=== PATIENT | male | born 1940 | race Two or more races ===

== ENCOUNTER 2017-01-22 00:01 | Emergency (ER) | payer MEDICARE, OTHER ==
[~2017-01-22] VITALS: Ht 170.2 cm; Wt 77.1 kg
[2017-01-22] MEDS ORDERED: AMLO5TAB2 PO (00:20)
[2017-01-22] MEDS ORDERED: METO-306 PO (00:20)
--- NOTE | 2017-01-22 00:33 | NUR ---
Pt c/o dizziness, primarily when changing positions. Pt denies CP, SOB, n/v, no other complaints, no distress noted.
[2017-01-22] MEDS ORDERED: MECLIZINE HCL 25 MG TABLET PO ONE (00:45)
[2017-01-22] MEDS ORDERED: MECLIZINE HCL 25 MG TABLET ONE (01:02)
[2017-01-22 01:04] LABS: BASOPHILS % (AUTO) 0.6 % (0.0-2.0); EOSINOPHILS # (AUTO) 0.2 K/uL (0.0-0.7); EOSINOPHILS % (AUTO) 2.7 % (0.0-7.0); HEMATOCRIT 38.7 % (36.7-47.1); HEMOGLOBIN 13.2 g/dL (12.5-16.3); LYMPHOCYTES # (AUTO) 2.2 K/uL (20.0-40.0); LYMPHOCYTES % (AUTO) 32.2 % (20.5-51.5); MEAN CORPUSCULAR HEMOGLOBIN 29.8 uug (23.8-33.4); MEAN CORPUSCULAR HGB CONC 34 g/dL (32.5-36.3); MEAN CORPUSCULAR VOLUME 87.3 fL (73.0-96.2); MONOCYTES # (AUTO) 0.6 K/uL (2.0-10.0); MONOCYTES % (AUTO) 9.4 % (0.0-11.0); NEUTROPHILS # (AUTO) 3.7 K/uL (1.8-8.9); NEUTROPHILS % (AUTO) 55.1 % (38.5-71.5); PLATELET COUNT (AUTO) 219 K/uL (152-348); RED BLOOD CELL COUNT(AUTO) 4.44 MIL/uL (4.06-5.63); WHITE BLOOD COUNT (AUTO) 6.7 K/uL (3.6-10.2)
[2017-01-22 01:14] LABS: CARBON DIOXIDE 29 mmol/L (21-32); CHLORIDE 105 mmol/L (98-107); GLUCOSE 132 mg/dL (74-106); POTASSIUM 3.4 mmol/L (3.5-5.1); UREA NITROGEN, BLOOD 13 mg/dL (7-18)
[2017-01-22] MEDS ORDERED: POTASSIUM CHLORIDE 20 MEQ TAB.PRT.SR PO ONE (01:45)
[2017-01-22] MEDS ORDERED: POTASSIUM CHLORIDE 20 MEQ TAB.PRT.SR ONE (02:15)
--- NOTE | 2017-01-22 02:40 | NUR ---
IV removed intact, site okay, bandaged. Gave pt RX and d/c instructions, verbalized understanding. Daughter bedside.
== END 2017-01-22 02:45 | disposition home or self-care (01) ==
LOC: ER 00:08
DX: R42 Dizziness and giddiness (principal); E87.6 Hypokalemia; I10 Essential (primary) hypertension
CPT/HCPCS: 36415; 70450; 80048; 85025; 85730; 93005; 99285; A4663; J8597

== ENCOUNTER 2023-05-17 09:37 | Emergency (ER) | payer MEDICARE, OTHER ==
[~2023-05-17] VITALS: Ht 170.2 cm; Wt 78.9 kg
[~2023-05-17 09:37] MED LIST: AMLO-212 PO; METO-358 PO
[2023-05-17] MEDS ORDERED: SWABABLE VALVE TRANSFER SET EA MC ONE (10:05)
[2023-05-17] MEDS ORDERED: IOHEXOL 350 100 ML INFUS..BTL ONE (10:05)
[2023-05-17] MEDS ORDERED: IV NORMAL SALINE 250 ML IV ONE (10:06)
[2023-05-17] MEDS ORDERED: METO100T7 PO (10:16)
[2023-05-17] MEDS ORDERED: TAMS-3 PO (10:16)
[2023-05-17] MEDS ORDERED: AMLO5TAB4 PO (10:16)
[2023-05-17 10:23] LABS: BASOPHILS % (AUTO) 0.4 % (0.0-2.0); EOSINOPHILS # (AUTO) 0.1 K/uL (0.0-0.7); EOSINOPHILS % (AUTO) 1.1 % (0.0-7.0); HEMATOCRIT 38.9 % (36.7-47.1); HEMOGLOBIN 13.7 g/dL (12.5-16.3); LYMPHOCYTES # (AUTO) 2.1 K/uL (0.8-4.8); LYMPHOCYTES % (AUTO) 34.1 % (20.5-51.5); MEAN CORPUSCULAR HEMOGLOBIN 30.8 uug (23.8-33.4); MEAN CORPUSCULAR HGB CONC 35 g/dL (32.5-36.3); MEAN CORPUSCULAR VOLUME 87.3 fL (73.0-96.2); MONOCYTES # (AUTO) 0.5 K/uL (0.1-1.30); MONOCYTES % (AUTO) 9.1 % (0.0-11.0); NEUTROPHILS # (AUTO) 3.3 K/uL (1.8-8.9); NEUTROPHILS % (AUTO) 55.3 % (38.5-71.5); PLATELET COUNT (AUTO) 185 K/uL (152-348); RED BLOOD CELL COUNT(AUTO) 4.45 MIL/uL (4.06-5.63); RED CELL DISTRIBUTION WIDTH 14.2 % (12.1-16.2)
[2023-05-17 10:28] LABS: DIFFERENTIAL COMMENT 1
[2023-05-17 10:42] LABS: CALCIUM 8.7 mg/dL (8.5-10.1); CARBON DIOXIDE 27 mmol/L (21-32); CHLORIDE 104 mmol/L (98-107); CREATININE 0.9 mg/dL (0.6-1.3); GLUCOSE 113 mg/dL (74-106); POTASSIUM 3.9 mmol/L (3.5-5.1); SODIUM SERUM 140 mmol/L (136-145); UREA NITROGEN, BLOOD 17 mg/dL (7-18)
[2023-05-17 10:48] LABS: ALANINE AMINOTRANSFERASE 19 U/L (16-63); ALBUMIN 3.8 g/dL (3.4-5.0); ALKALINE PHOSPHATASE 79 U/L (50-136); ASPARTATE AMINOTRANSFERASE 13 U/L (15-37); BILIRUBIN,DIRECT 0.1 mg/dL (0.0-0.2); BILIRUBIN,TOTAL 0.8 mg/dL (0.2-1.0); TOTAL PROTEIN, SERUM 7.6 g/dL (6.4-8.2)
[2023-05-17 11:01] LABS: HDL CHOLESTEROL 51 mg/dL (40-60); TRIGLYCERIDES 91 MG/DL (30-150)
[2023-05-17 11:02] LABS: CHOLESTEROL 200 mg/dL (<200)
[2023-05-17] MEDS ORDERED: ASPIRIN 325 MG TABLET ONE (11:35)
[2023-05-17] MEDS: ASPIRIN 325 MG TABLET PO ONE (11:40)
[2023-05-17 11:59] VITALS: BP 141/55; TEMP 97.8; O2SAT 99
[2023-05-17 12:28] LABS: *BILIRUBIN,URIN NEGATIVE (NEGATIVE); *BLOOD, URINE 2+ (NEGATIVE); *CLARITY,URINE CLEAR (CLEAR); *COLOR,URINE YELLOW (YELLOW); *KETONES,URINE NEGATIVE (NEGATIVE); *PROTEIN,URINE NEGATIVE (NEGATIVE); *UROBILINOGEN,URINE 0.2 E.U./dl (NORMAL); LEUKOCYTE ESTERASE ,URINE NEGATIVE (NEGATIVE); NITRITE, URINE NEGATIVE (NEGATIVE); UGLUCOSE NEGATIVE (NEGATIVE)
[2023-05-17 12:50] LABS: RBC,URINE 80-100 /HPF (0-3); WBC,URINE NONE SEEN /HPF (0-3)
== END 2023-05-17 11:57 | disposition home or self-care (01) ==
LOC: ER 09:37
DX: G45.9 Transient cerebral ischemic attack, unspecified (principal); Z79.899 Other long term (current) drug therapy; Z20.822 Contact with and (suspected) exposure to COVID-19
CPT/HCPCS: 99291; 70496; 71045; 87426; 80061; 80076; 80048; 81001; 85025; 85379; 85730; 86850; 86900; 86901; 84484; 36415; 93005; 70498; 70450; Q9967; A4606; A4663

== ENCOUNTER 2024-03-08 17:39 | Emergency (ER) | payer MEDICARE, OTHER ==
[~2024-03-08] VITALS: Ht 170.2 cm; Wt 75.3 kg
[~2024-03-08 17:39] MED LIST changes: +AMLO5TAB4 PO; +METO100T7 PO; +TAMS-3 PO
[2024-03-08 23:50] LABS: BASOPHILS % (AUTO) 0.4 % (0.0-2.0); EOSINOPHILS # (AUTO) 0.1 K/uL (0.0-0.7); EOSINOPHILS % (AUTO) 1.1 % (0.0-7.0); HEMATOCRIT 37.8 % (36.7-47.1); HEMOGLOBIN 12.7 g/dL (12.5-16.3); LYMPHOCYTES # (AUTO) 1.8 K/uL (0.8-4.8); LYMPHOCYTES % (AUTO) 24.7 % (20.5-51.5); MEAN CORPUSCULAR HGB CONC 34 g/dL (32.5-36.3); MEAN CORPUSCULAR VOLUME 89.3 fL (73.0-96.2); MONOCYTES # (AUTO) 0.7 K/uL (0.1-1.30); MONOCYTES % (AUTO) 9.5 % (0.0-11.0); NEUTROPHILS # (AUTO) 4.7 K/uL (1.8-8.9); NEUTROPHILS % (AUTO) 64.3 % (38.5-71.5); PLATELET COUNT (AUTO) 182 K/uL (152-348); RED BLOOD CELL COUNT(AUTO) 4.23 MIL/uL (4.06-5.63); RED CELL DISTRIBUTION WIDTH 14.3 % (12.1-16.2); WHITE BLOOD COUNT (AUTO) 7.3 K/uL (3.6-10.2)
[2024-03-09] LABS: CALCIUM 8.5 mg/dL (8.5-10.1); CARBON DIOXIDE 30 mmol/L (21-32); CHLORIDE 105 mmol/L (98-107); GLUCOSE 137 mg/dL (74-106); POTASSIUM 4.2 mmol/L (3.5-5.1); SODIUM SERUM 143 mmol/L (136-145); UREA NITROGEN, BLOOD 14 mg/dL (7-18)
[2024-03-09] MEDS ORDERED: MORPHINE SULFATE 2 MG/1 ML DISP.SYRIN IM ONE
[2024-03-09] MEDS ORDERED: ONDANSETRON ODT 4 MG TAB.RAPDIS SL ONE
[2024-03-09 00:05] LABS: ALANINE AMINOTRANSFERASE 24 U/L (16-63); ALBUMIN 3.5 g/dL (3.4-5.0); ALKALINE PHOSPHATASE 74 U/L (50-136); ASPARTATE AMINOTRANSFERASE 15 U/L (15-37); BILIRUBIN,TOTAL 0.5 mg/dL (0.2-1.0); TOTAL PROTEIN, SERUM 7.1 g/dL (6.4-8.2)
[2024-03-09] MEDS ORDERED: KETOROLAC TROMETHAMINE 15 MG INJ ONE (00:10)
[2024-03-09] MEDS: KETOROLAC TROMETHAMINE 15 MG INJ IM ONE (00:17)
[2024-03-09] MEDS ORDERED: KETO10TA2 PO (00:25)
[2024-03-09 00:52] VITALS: BP 144/91; TEMP 98.5; O2SAT 97
== END 2024-03-09 00:53 | disposition home or self-care (01) ==
LOC: ER 17:39
DX: M19.032 Primary osteoarthritis, left wrist (principal); I10 Essential (primary) hypertension; M54.12 Radiculopathy, cervical region; Z79.899 Other long term (current) drug therapy
CPT/HCPCS: 99285; 72125; 80053; 85025; 36415 ×2; 84550; 73110; 96372; J1885; A4606; A4663